=== PATIENT | female | born 1955 | race Caucasian/White ===

== ENCOUNTER 2020-06-12 08:42 | Day surgery (SDC) | payer BC ==
[2020-06-12 09:29] VITALS: BMI 19.3
[2020-06-12] MEDS ORDERED: FOLIC ACID 0.8 MG PO SCH (10:15)
[2020-06-12] MEDS ORDERED: BUPIVACAINE LIPOSOME/PF (EXPAREL) 266 MG/20 ML VIAL ONE (11:13)
[2020-06-12] MEDS ORDERED: BUPIVACAINE HCL/PF 0.25% (2.5MG/ML) 10 ML VIAL ONE (11:14)
[2020-06-12] MEDS ORDERED: ACETAMINOPHEN INJECTION 100 ML IVPB ONE (11:36)
[2020-06-12] MEDS ORDERED: BUPIVACAINE LIPOSOME/PF (EXPAREL) 266 MG/20 ML VIAL NR ONE (13:30)
[2020-06-12] MEDS ORDERED: BUPIVACAINE HCL/PF 0.25% (2.5MG/ML) 10 ML VIAL IJ ONE (13:30)
[2020-06-12] MEDS ORDERED: BENZOIN/ALOE VERA/STORAX/TOLU 58 ML BOTTLE ONE (13:37)
[2020-06-12] MEDS ORDERED: LACTATED RINGERS SOLUTION 1,000 ML IV SCH (14:00)
[2020-06-12] MEDS ORDERED: ONDANSETRON 4 MG/2 ML VIAL IVPUSH PRN (14:08)
[2020-06-12 16:37] VITALS: TEMP 97.1
[2020-06-12 18:04] VITALS: PULSE 84
[2020-06-12 18:06] VITALS: BP 161/84
[2020-06-12] MEDS ORDERED: DULoxetine HCL 30 MG CAPSULE.DR PO SCH (22:00)
[2020-06-12] MEDS ORDERED: ASPIRIN COATED 81 MG TABLET.EC PO SCH (22:00)
[2020-06-12] MEDS ORDERED: ZOLPIDEM TARTRATE 5 MG TABLET PO PRN (22:00)
[2020-06-13] MEDS ORDERED: AZILSARTAN MEDOXOMIL 80 MG PO SCH (10:00)
[2020-06-14] MEDS ORDERED: ROSUVASTATIN CA 5 MG TABLET (FP) PO SCH (10:00)
== END 2020-06-12 17:57 | disposition home or self-care (01) ==
LOC: FASU 08:42
PROVIDERS: ATTEND Orthopaedic Surgery Orthopaedic Surgery of the Spine
PROC: 0QS704Z Reposition Left Upper Femur with Internal Fixation Device, Open Approach (ICD-10-PCS; principal; 2020-06-12 12:35)
DX: S72.092A Other fracture of head and neck of left femur, initial encounter for closed fracture (principal); X58.XXXA Exposure to other specified factors, initial encounter; Y93.9 Activity, unspecified; Y92.9 Unspecified place or not applicable; Y99.9 Unspecified external cause status
CPT/HCPCS: 72170-TC-FY; 73501-TC-LT-FY; 76000-TC-FY; 94760; 97116-GP; 97162-GP; J0131